=== PATIENT | male | born 1985 | race Caucasian/White ===

== ENCOUNTER 2025-09-04 10:54 | Outpatient (CLI) | payer BC, SELFPAY ==
[2025-09-04 11:37] LABS: PCR FLU A POSITIVE PCR FLU A (Negative); PCR FLU B Negative PCR FLU B (Negative); SARS PCR* Negative SARS-CoV-2 (Negative)
== END 2025-09-04 10:55 | disposition home or self-care (01) ==
LOC: FRMREF 10:54
PROVIDERS: Visit Provider Nurse Practitioner Family
DX: R05.9 Cough, unspecified (principal); R50.9 Fever, unspecified; R09.81 Nasal congestion
CPT/HCPCS: 87636